=== PATIENT | female | born 1965 | race Asian ===

== ENCOUNTER 2018-10-11 10:02 | Emergency (ER) | payer SELFPAY ==
[~2018-10-11] VITALS: Ht 172.7 cm; Wt 68.9 kg
[2018-10-11 10:19] VITALS: BP_SYST 124
[2018-10-11] MEDS ORDERED: PHENYLEPHRINE HCL 1% NASAL 15 ML NASPR NS ONE (10:45)
[2018-10-11 11:16] VITALS: BP_SYST 124
== END 2018-10-11 11:16 | disposition home or self-care (01) ==
LOC: SED 10:02
DX: R04.0 Epistaxis (principal); R03.0 Elevated blood-pressure reading, without diagnosis of hypertension
CPT/HCPCS: 99282